=== PATIENT | male | born 1945 | race American Indian/Alaskan Native ===

== ENCOUNTER 2019-12-11 07:27 | Day surgery (SDC) | payer MEDICARE ==
[~2019-12-11 07:27] MED LIST: SODIUM CHLORIDE 0.9% 1000 ML 1,000 ML IV SCH
[2019-12-11] MEDS ORDERED: propofoL 200 MG/20 ML VIAL IV ONE ×2 (07:40)
--- NOTE | 2019-12-11 08:36 | Anesthesia Consultation ---
Anesthesia Consult and Med Hx Date of service: 12/11/19 - Airway Anesthetic Teeth Evaluation: Good ROM Head & Neck: Adequate Mental/Hyoid Distance: Adequate Mallampati Class: Class II Intubation Access Assessment: Probably Good - Pre-Operative Health Status ASA Pre-Surgery Classification: ASA3 Proposed Anesthetic Plan: MAC - Pulmonary Hx Smoking: Yes (past smoker. smoking since 17yrs old. quit 3 month ago) Hx Asthma: No Hx Respiratory Symptoms: No SOB: No COPD: No Home Oxygen Therapy: No Hx Pneumonia: No Hx Sleep Apnea: No - Cardiovascular System Hx Hypertension: Yes Hx Coronary Artery Disease: No Hx Heart Attack/AMI: No Hx Angina: No Hx Percutaneous Transluminal Coronary Angioplasty (PTCA): No Hx Cardia Arrhythmia: No Hx Pacemaker: No Hx Internal Defibrillator: No Hx Valvular Heart Disease: No Hx Heart Murmur: No Hx Peripheral Vascular Disease: No - Central Nervous System Hx Neuromuscular Disorder: No Hx Seizures: No CVA: No Hx Back Pain: No Hx Psychiatric Problems: No - Gastrointestinal Hx Ulcer: No Hx Gastroesophageal Reflux Disease: No - Endocrine Hx Renal Disease: No Hx End Stage Renal Disease: No Hx Cirrhosis: No Hx Liver Disease: No Hx Insulin Dependent Diabetes: No Hx Non-Insulin Dependent Diabetes: No Hx Thyroid Disease: No Hx Hypothyroidism: No Hx Hyperthyroidism: No - Hematic Hx Anemia: No Hx Sickle Cell Disease: No - Other Systems Hx Alcohol Use: Yes (occ.) Hx Substance Use: No Hx Cancer: Yes (Prostate CA) Hx Obesity: No
--- NOTE | 2019-12-11 08:37 | Anesthesia Day of Surgery ---
Anesthesia Day of Surgery - Day of Surgery Patient Examined: Yes Patient H&P Reviewed: Yes Patient is NPO: Yes Beta Blockers: No
--- NOTE | 2019-12-11 09:46 | Procedure Note ---
Date of procedure: 12/11/19 Pre-op diagnosis: H/O Atrophic gastritis Post-op diagnosis: other (H/O Atrophic gastritis/Gastric Erosion/Gastritis/Mild to Moderate Erosive Esophagitis) Procedure: EGD with Biopsy Anesthesia: MAC Surgeon: NELA BONILLA Estimated blood loss: minimal Pathology: list Specimen disposition: to lab Condition: stable Disposition: same day (Treat with PPI. Resume home medication but avoid aspirin and NSAID for 5 days. Follow up in 1 to 2 weeks ([phone]).)
[2019-12-11] MEDS ORDERED: WATER FOR IRRIG STERILE 250 ML BOTTLE IR ONE (09:51)
--- NOTE | 2019-12-11 09:58 | Operative Report ---
PROCEDURE: Esophagogastroduodenoscopy with biopsy. INDICATIONS: A 74-year-old -[place] gentleman with underlying history of atrophic gastritis, history of vitamin B12 deficiency. EGD was done to make sure there was not any progression of his atrophic gastritis. DESCRIPTION OF PROCEDURE: The procedure was done after getting informed consent with MAC anesthesia. Instrument was passed through the hypopharynx into the esophagus, which showed mild to moderate distal erosive esophagitis. Biopsy was done from the distal esophagus and the stomach showed antral erosion. Biopsy was done from the gastric antrum and angular incisura. Additional biopsy in a different jar was made from the gastric body to assess for the severity of the atrophic gastritis. The pylorus was patent. The duodenum in the first and second portion appeared normal. There was minimal bleeding from the biopsy sites. No complications associated with the procedure. ASSESSMENT: History of atrophic gastritis, gastritis, antral erosion, [id number] erosive esophagitis. PLAN: Treat the patient with PPI, have the patient avoid aspirin and aspirin-related products for the next few days and follow up in the office in 1-2 weeks' time, while the patient was on the monitor, the patient was noted to have some bradycardia. The patient may require a cardiology evaluation and the patient has been advised about that. The procedure was done in the GI lab with assistance of the GI lab team, which included jesica Cannon and with assistance of anesthesia. JOB# [id number] MAMTA/TOÑA
[2019-12-11] MEDS ORDERED: LIDOCAINE MPF (2%) 20 MG/1 ML VIAL 5 ML ONE (10:00)
[2019-12-11 10:23] VITALS: BP 129/69
--- NOTE | 2019-12-11 14:37 | Post Anesthesia Evaluation ---
- Post Anesthesia Evaluation Patient Participated: Yes Airway Patent: Yes Stable Respiratory Function: Yes Nausea/Vomiting: No Temp > 96.8F: Yes Pain Manageable: Yes Adequeate Hydration: Yes Anesthesia Complications: No
== END 2019-12-11 11:59 | disposition home or self-care (01) ==
LOC: GIO 07:27
DX: K29.50 Unspecified chronic gastritis without bleeding (principal); K31.89 Other diseases of stomach and duodenum; K20.9 Esophagitis, unspecified; I10 Essential (primary) hypertension; M19.90 Unspecified osteoarthritis, unspecified site; Z96.651 Presence of right artificial knee joint; Z87.891 Personal history of nicotine dependence; Z85.46 Personal history of malignant neoplasm of prostate; Z79.899 Other long term (current) drug therapy; Z72.89 Other problems related to lifestyle; Z98.890 Other specified postprocedural states
CPT/HCPCS: 43239; 88305; 88342; J2704; J7030